=== PATIENT | female | born 1995 | race Hispanic/Latino ===

== ENCOUNTER 2019-09-06 | Emergency (ER) | payer BC ==
[2019-09-06] MEDS ORDERED: FLEXERIL PO (15:04)
[2019-09-06] MEDS ORDERED: PREDNISONE10 MG PO (15:04)
== END 2019-09-06 15:15 | disposition home or self-care (01) | DRG 563 ==
DX: S39.012A Strain of muscle, fascia and tendon of lower back, initial encounter (principal); X50.3XXA Overexertion from repetitive movements, initial encounter; Y93.89 Activity, other specified

== ENCOUNTER 2019-09-08 14:33 | Emergency (ER) | payer BC ==
[~2019-09-08 14:33] MED LIST: FLEXERIL PO; PREDNISONE10 MG PO
[2019-09-08 14:53] VITALS: BP 118/77
== END 2019-09-08 15:00 | disposition left against medical advice (07) | DRG 951 ==
LOC: ED 14:33 → LWOBS 14:59 → ED 14:59 → LWOBS 15:00
DX: Z53.21 Procedure and treatment not carried out due to patient leaving prior to being seen by health care provider (principal)